=== PATIENT | female | born 1930 | race Caucasian/White ===

== ENCOUNTER → 2016-10-08 | Outpatient (CLI) | payer MEDICARE, BC ==
[~2016-10-08] MED LIST: ASPIRIN EC81 MG PO; BRILINTA90 MG PO; CALCIUM CITRAT1 EAC6 PO; CLOPIDOGREL75 MG PO; DELTASONE5 MG PO; DEMADEX10 MG PO; FOSAMAX70 MG PO; K-TAB 10MEQ10 MEQ PO; LIPITOR20 M1 PO; LOPRESSOR25 MG PO; MIDODRINE HCL2.5 MG PO; NORVASC2.5 MG PO; OMEPRAZOLE40 MG PO; RANEXA ER500 MG PO; TYLENOL EXTRA500 MG PO; VITAMIN D-32000 UNI1 PO; XANAX0.5 MG PO
== END | disposition disaster alternative care site (69) ==
LOC: LFPA 10:05
DX: I50.32 Chronic diastolic (congestive) heart failure (principal)

== ENCOUNTER → 2016-11-04 | Outpatient (CLI) | payer MEDICARE, BC | END | disposition disaster alternative care site (69) | LOC: GRAD 12:40 | DX: N28.89 Other specified disorders of kidney and ureter (principal) ==

== ENCOUNTER → 2017-01-11 | Outpatient (CLI) | payer MEDICARE, BC ==
[2017-01-11 14:15] LABS: ALBUMIN 3.8 gm/dL (3.5-5.0); ANION GAP 12.8 (10.0-19.0); CALCIUM 9.3 mg/dL (8.5-10.5); CREATININE 0.9 mg/dL (0.5-1.1); POTASSIUM 3.8 mMol/L (3.7-5.1); TOTAL BILIRUBIN 0.5 mg/dL (0.0-1.5); TOTAL PROTEIN 6.8 g/dL (6.0-8.4)
== END | disposition disaster alternative care site (69) ==
LOC: LNHI 13:50
PROVIDERS: Internal Medicine Interventional Cardiology
DX: I25.10 Atherosclerotic heart disease of native coronary artery without angina pectoris (principal); I36.1 Nonrheumatic tricuspid (valve) insufficiency

== ENCOUNTER → 2017-02-07 | Outpatient (CLI) | payer MEDICARE, BC ==
--- NOTE | ~2017-02-07 | ESTC ---
Cardiac Perfusion Imaging Demographics Patient Name CARMEN Hines Gender Female Patient Number [id number] Race Visit Number [id number] [place] [id number] Room Number Accession Number [id number] Height 67 inches Date of 1930 Weight 128 pounds Interpreting Milan Kelley Date of study 02/07/2017 Physician MD Supervising /MCKENNAP Aris Haddad APRN NM Technologist Salina Moreno Ordering Physician Milan Kelley Stress senior games technician Stress ECG Reading Aris Haddad APRN Nurse Propp Shannon BRINK Physician Procedure Procedure Type: Nuclear Stress Test:Pharmacological, Lexiscan, Cardiolite Stress Test Procedure Start time: 02/07/2017 08:30 Indications: Chest pressure and Shortness of breath. Risk Factors The patient risk factors include:prior PCI on 02/06/2016;treated hypercholesterolemia, treated hypertension, family history of premature CAD, dyslipidemia and prior [place] . Conclusions Impression ECG portion of the stress test is clinically negative for ischemia by diagnostic criteria. Myocardial perfusion imaging is mildly abnormal. The images reveal a reversible defect in the distal anteroseptal wall consistent with ischemia in the territory of the left anterior descending artery . Overall left ventricular systolic function was normal. Calculated LVEF is 72% and TID ratio is slightly elevated at 1.26. This is a intermediate risk stress test. Stress Protocols Resting ECG Sinus rhythm Pre-stress physical exam: Patient assessed by Kaushik BANKS prior to testing. Chest - CTA Cardio - RRR, S1, S2 Predicted HR: 133 bpm HR response: Appropriate BP response: Appropriate Reason for termination:Infusion complete ECG Findings No ECG changes suggestive of ischemia. Arrhythmias No rhythm abnormality. Symptoms Shortness of breath. Nausea. Mild chest pain. Complications Procedure complication: None. Stress Interpretation Appropriate hemodynamic response to Lexiscan. No significant ST-T wave changes with Lexiscan. ECG portion is negative for ischemia by diagnostic criteria. Will correlate with nuclear images. Imaging Results Applied corrections - Motion correction applied High risk findings Summed scores - LV dilatation (TID) : 1.26 - Summed stress score: 10 - Summed rest score: 6 - Summed difference score: 4 Stress ejection Ejection fraction:72 % EDV :65 ml ESV :18 ml Stroke volume :47 ml LV mass :99 gr Imaging Protocols Rest Stress Isotope:Tc99m Sestamibi IV Isotope: Tc99m Sestamibi IV Isotope dose:10.5 mCi Isotope dose:33.8 mCi Date:02/07/2017 07:00 Date:02/07/2017 09:00 Technique: SPECT Technique: Gated Supine SPECT Supine Scan Time:45-60 minutes post Scan Time:45-60 minutes post injection injection Procedure Medications - Regadenoson (Lexiscan) 0.4 mg IV over 10-15 sec. I.V. 0.4 mg. Medical History Admission Data Admission date: 02/07/2017 Admission Time: 06:18 Hospital Status: Outpatient. Signatures dtt: UNIQUE GALLARDO dtd: 02/07/17 0814 Physician Self Edit
== END | disposition disaster alternative care site (69) ==
LOC: GRAD 02-03 07:45
DX: I20.0 Unstable angina (principal); I25.10 Atherosclerotic heart disease of native coronary artery without angina pectoris; E78.00 Pure hypercholesterolemia, unspecified; I10 Essential (primary) hypertension; Z82.49 Family history of ischemic heart disease and other diseases of the circulatory system; E78.5 Hyperlipidemia, unspecified; I25.2 Old myocardial infarction
CPT/HCPCS: A9500; J0280; J2785

== ENCOUNTER 2017-02-11 07:00 | Outpatient (CLI) | payer MEDICARE, BC ==
[~2017-02-11] VITALS: Ht 170.2 cm; Wt 57.8 kg
--- NOTE | ~2017-02-11 | CATH ---
Cardiac Diagnostic + PCI Report Demographics Patient Name CARMEN Hines Gender Female Date of 1930 Age 86 year(s) Patient Number [id number] Date of Study 02/11/2017 Visit Number [id number] Room Number G63[address] [place] [id number] Ht 170.18 cm Wt 58.8 kg Referring Robles Ray Primary Physician Physician Performing [place] Secondary Physician Physician Allie JIMENEZ Diagnostic [facility] Assisting Physician Physician Allie JIMENEZ Interventional [facility] Physician Sample Washer Physician Allie JIMENEZ Findings and Conclusions Diagnostic Findings and Conclusion Mid LAD ISR 30% and ostial diag with 20% stenosis. Patient has worsening symptoms of angina, and positive stress test. Diagnostic Recommendations iFR LAD given SOB/CP and positive stress test with ischemia in LAD territory. Interventional Findings and Conclusion iFR 0.96-0.99 Interventional Recommendations The lesion is not physiologically significant and PCI is not indicated. continue GDMT. Unable to start antianginal agents d/t h/o syncope/orthostatic hypotension, dizziness and low BP. Continue ranolazine and low dose torsemide. Recommend work up for non-cardiac causes of symptoms. Patient has been instructed to not lift anything more than 5 pounds for 1 week. I would like to thank Dr. Beck for the opportunity to participate in the care of Mrs Webber . Procedure Description The patient was brought to the diagnostic cardiac catheterization-EP laboratory in the fasting, non-sedated state. Informed consent was obtained in the written and verbal form after the risks and benefits were explained. The patient had no further questions and agreed to proceed. The planned puncture-incision site(s) were shaved and prepped with ChloraPrep and draped in the usual sterile manner. Conscious sedation, supplemental oxygen, and pain control medications were delivered by a registered nurse under physician guidance. Surface ECG rhythm, blood pressure measurement, and pulse oximetry were monitored throughout the procedure. Arterial access. The access site was infiltrated with lidocaine. The vessel was entered with the Seldinger technique. A sheath was advanced into the vessel and used for catheter placement. Selective left coronary angiography. A catheter was advanced into the left coronary vessel ostium under Fluoroscopic guidance. Contrast was injected by hand. Images were obtained in multiple projections. Selective right coronary angiography. A catheter was advanced into the right coronary vessel ostium under fluoroscopic guidance. Contrast was injected by hand. Images were obtained in multiple projections. iFR measurement was performed. The vessel was entered with a guiding catheter. The iFR wire was normalized and then advanced across the lesion. Measurements were taken. Arterial artery hemostasis was achieved. The patient was transferred to a regular nursing floor via cart accompanied by a nurse. The patient left the laboratory in stable condition. Diagnostic Cath Status: Elective Interventional Cath Status: Elective Procedure Procedure Type Diagnostic procedure:Angiography:, Coronary Angios PCI procedure:Additional Imaging:, FFR/iFR:, Initial Vessel Indications: Abnormal Stress Test. The procedure was explained in detail to the patient. Risks, complications and alternative treatments were reviewed. Written consent was obtained. Medications Reviewed with Patient prior to Procedure. Angiographic Findings Dominance: Right Cardiac Arteries and Lesion Findings LMCA: Normal (0% Stenosis). LAD: There is a previous stent on Mid LAD Ostial showing wide patency. Lesion on Mid LAD: Mid subsection.30% stenosis . The lesion was previously treated with the following techniques: stent unknown type. FFR + + + + !FFR !Stage/Medication !Dosage ! + + + + !0.96 ! ! ! + + + + Devices used - Verrata Pressure Wire. Number of passes: 1. Lesion on Prox LAD: 30% stenosis . Lesion on 1st Dia% stenosis . LCx: Normal (0% Stenosis). RCA: Normal (0% Stenosis). Coronary Tree Procedure Data Procedure Date Date: 02/11/2017Start: 09:21 AMEnd: 10:39 AM Entry Locations - Retrograde Percutaneous access was performed through the Right Radial artery (Primary location). A 6 Fr sheath was inserted. Unsuccessful closure attempt was performed using: an R band. Hemostasis was successfully obtained using Mechanical Compression. Closure Comments: R) band applied by [place]. 14 ml of air in band. Procedure Medications Order and Administration + + + + + !Time !Medication !Dosage !Route ! + + + + + 02/11/2017 09:10 AM !Versed !0.5 mg !I.V. ! + + + + 02/11/2017 09:16 AM !Fentanyl !12.5 mcg !I.V. ! + + + + 02/11/2017 09:21 AM !0.9% NaCl !100 ml !I.V. drip ! + + + + 02/11/2017 09:23 AM !Radial Verapamil !2.5 mg !I.A. ! + + + + 02/11/2017 09:26 AM !Heparin (ACC_3) !4000 units !I.V. ! + + + + 02/11/2017 09:37 AM !Heparin (ACC_3) !2000 units !I.V. ! + + + + 02/11/2017 09:37 AM !Nitroglycerin !200 mcg !I.C. ! + + + + 02/11/2017 09:45 AM !Oxygen !2 l/min !NC ! + + + + + !02/11/2017 10:34 AM !Oxygen ! !NC ! + + + + + Devices Used - A5 Fr. BS JR 4 Diag. Catheterwas used for:Right coronary angiography. - A5 Fr. BS JL 3.5 Diag. Catheterwas used for:Left coronary angiography. - A6 Fr. XB 3.5 Guide Catheterwas used for:Fractional Flow [place] measurments. - A6 Fr. XBLAD 3.5 Guide Catheterwas used for:Fractional Flow [place] measurments. Contrast Material - Isovue 05362 ml Fluoroscopy Time: Diagnostic: 30:42 minutes. Total: 30:42 minutes. Fluoroscopy Dose: Diagnostic: 749 mGy. Total: 749 mGy. Estimated Blood Loss: 15 ml. Additional ACC PCI Information PCI Indication:PCI for high risk Non-STEMI or unstable angina. Medical History Performed Procedures and Imaging Results - Stress testing with SPECT MPIwas performed. Results were: Positive. Allergies - Morphine. - Other:(meperidine). Risk Factors The patient risk factors include:prior PCI on 02/06/2016;hypertension, family history of premature CAD, last creatinine: 1.2 mg/dl, creatinine clearance: 30.66 ml/min, dyslipidemia and prior [place] . Admission Data Admission Date: 02/11/2017 Admission Time: 07:00 AM Admit Source: Other Insurance Payors: Medicare. Admission Medications + +------+-------+ + + + + !Medication!Dosage!Times !Last !Last !Administered !Comments ! ! ! !Per Day!Delivery !Delivery ! ! ! ! ! ! !Date !Time ! ! ! + +------+-------+ + + + + !Aspirin ! ! ! ! !Yes ! ! !(any) ! ! ! ! ! ! ! + +------+-------+ + + + + !Statin ! ! ! ! !Yes ! ! !(any) ! ! ! ! ! ! ! + +------+-------+ + + + + Clinical Evaluation Leading to Procedure - The patient's CAD presentation was assessed as: Unstable angina. 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 Anti-anginal medications were prescribed during the past two weeks. The medication is: Ranolazine. Hemodynamics Condition: Rest O2 Consumption: Estimated: 144.44Heart Rate: 63 bpm Pressures (mmHg) +-----+ + !Site !Pressure ! +-----+ + !AO !149/65 (100) ! +-----+ + Shunts Oxygen Values O2 Capacity 182.24 O2 Consumption 144.44 Signatures dtt: ALLIE GALLARDO dtd: 02/11/17 0921 Physician Self Edit
[2017-02-11 07:34] LABS: BASOPHIL # 0.1 K/uL (0.0-0.2); BASOPHIL % 0.9 %; EOSINOPHIL # 0.1 K/uL (0.0-0.5); EOSINOPHIL % 1.8 %; HEMATOCRIT 39.6 % (30.0-46.0); HEMOGLOBIN 13.4 g/dL (10.0-15.0); IMMATURE GRANULOCYTE % 0.3 %; LYMPHOCYTE # 2.3 K/uL (0.8-4.0); LYMPHOCYTE % 34.3 %; MCH 31.2 pg (27.0-34.0); MCHC 33.8 gm/dL (32.0-36.5); MCV 92.1 fl (83.0-98.0); MONOCYTE # 0.5 K/uL (0.0-1.0); MONOCYTE % 7.6 %; MPV 9.6 fl (9.4-12.4); NEUTROPHIL # (ANC) 3.7 K/uL (1.8-7.8); NEUTROPHIL % 55.1 %; NRBC % 0 /100WBC (0-0.00); PLATELET COUNT 230 K/uL (150-450); RDW-CV 13.2 % (11.9-14.6); WBC 6.7 K/uL (4.0-11.0)
[2017-02-11 07:46] LABS: INR - (THERAPEUTIC) 0.95 (0.92-1.07); PTT 23 SECONDS (25-32)
[2017-02-11 07:51] LABS: ALBUMIN 3.8 gm/dL (3.5-5.0); ANION GAP 9.7 (10.0-19.0); CREATININE 1.2 mg/dL (0.5-1.1); POTASSIUM 3.7 mMol/L (3.7-5.1); TOTAL BILIRUBIN 0.6 mg/dL (0.0-1.5); TOTAL PROTEIN 6.7 g/dL (6.0-8.4)
== END 2017-02-11 16:05 | disposition disaster alternative care site (69) ==
LOC: GPCU 07:00 → GPOC 07:00
PROVIDERS: Internal Medicine Interventional Cardiology
PROC: 4A023N7 Measurement of Cardiac Sampling and Pressure, Left Heart, Percutaneous Approach (ICD-10-PCS; principal; 2017-02-11)
PROC: B216YZZ Fluoroscopy of Right and Left Heart using Other Contrast (ICD-10-PCS; 2017-02-11)
DX: I20.0 Unstable angina (principal); R94.39 Abnormal result of other cardiovascular function study
CPT/HCPCS: C1725; C1769; C1887; J1644; J2001; J2250; J3010; J7030

== ENCOUNTER → 2017-03-08 | Outpatient (CLI) | payer MEDICARE, BC ==
[2017-03-08 12:12] LABS: ANION GAP 11.8 (10.0-19.0); CALCIUM 9.2 mg/dL (8.5-10.5); CREATININE 1.3 mg/dL (0.5-1.1); POTASSIUM 3.8 mMol/L (3.7-5.1)
== END ==
LOC: LNHI 11:59
PROVIDERS: Internal Medicine Interventional Cardiology
DX: I36.1 Nonrheumatic tricuspid (valve) insufficiency (principal); I25.10 Atherosclerotic heart disease of native coronary artery without angina pectoris; R42 Dizziness and giddiness